=== PATIENT | female | born 1995 | race Caucasian/White ===

== ENCOUNTER 2022-04-15 20:55 | Emergency (ER) | payer OTHER ==
[2022-04-15 21:19] VITALS: BP 119/65
--- NOTE | 2022-04-15 22:17 | ED Physician Documentation ---
PD HPI CHEST PAIN - Stated complaint Stated Complaint: CHEST PX, SOA - Chief complaint Chief Complaint: Cardiac - History obtained from History obtained from: Patient - History of Present Illness Timing - onset: How many days ago (3) Timing - details: Gradual onset Quality: Aching Location: Substernal Radiation: Other (nonradiating) Improved by: Rest Similar symptoms before: No diagnosis Recently seen: Emergency Dept (seen at [facility]) Review of Systems Ten Systems: 10 systems reviewed and negative Cardiac: reports: Chest pain / pressure Respiratory: reports: Dyspnea. denies: Cough PD PAST MEDICAL HISTORY - Present Medications Home Medications: Ambulatory Orders Medication Instructions Recorded Confirmed No Known Home Medications 04/15/22 04/15/22 - Allergies Allergies/Adverse Reactions: Allergies Allergy/AdvReac Type Severity Reaction Status Date / Time No Known Drug Allergies Allergy Verified 04/15/22 21:19 PD ED PE NORMAL - Vitals Vital signs reviewed: Yes - General General: Alert and oriented X 3, No acute distress, Well developed/nourished - HEENT HEENT: Atraumatic, PERRL, EOMI - Neck Neck: Supple, no meningeal sign - Cardiac Cardiac: RRR - Respiratory Respiratory: No respiratory distress, Clear bilaterally - Abdomen Abdomen: Non tender, Non distended Results - Vitals Vitals: Vital Signs - 24 hr 04/15/22 04/15/22 21:16 21:19 Temperature 36.4 C L 36.5 C Heart Rate 58 L 58 L Respiratory 16 16 Rate Blood Pressure 119/65 119/65 O2 Saturation 98 98 Oxygen O2 Source Room air PD Medical Decision Making - ED course ED course: 27-year-old woman presented with chest pain, heart score 0, PERC negative. Reviewed her medical records from [facility] where she was seen earlier [facility]. Benign exam and normal vitals. Return precautions given. Plan to follow-up with primary care provider Departure - Departure Disposition: 01 Home, Self Care Clinical Impression: Chest pain Condition: Good Instructions: ED Chest Pain NonCardiac Comments: You are seen in the emergency department for chest pain. Your work-up at [facility] uncovered no emergent findings. Please follow-up with your primary care provider and return to the emergency department if you have new or worsening symptoms or other concerns.
== END 2022-04-15 22:25 | disposition home or self-care (01) ==
LOC: ED 20:55
DX: R07.9 Chest pain, unspecified (principal)
CPT/HCPCS: 80053; 83690; 84484; 85025; 93005; 99282; 99284

== ENCOUNTER 2022-07-04 10:28 | Emergency (ER) | payer OTHER ==
--- NOTE | 2022-07-04 11:21 | ED Physician Documentation ---
PD HPI URI - Stated complaint Stated Complaint: FEVER/HEAD PX - Chief complaint Chief Complaint: General - History obtained from History obtained from: Patient - History of Present Illness Timing - onset: How many days ago (2) Timing duration: Days (2) Timing details: Abrupt onset, Still present Associated symptoms: Fever, Nasal congestion, NVD (nausea with only vomiting couple times. Some loose stools.), Other (main symptoms are headache, body aches and nausea. Her son is with her and having similar symptoms.) Contributing factors: Sick contact (she stays at home but has 2 kids in school age, though they are both well currently. Her 4 year old son is with her and has similar symptoms to the patinet.) Improves by: Medication (tylenol and ibupofen help the headache but not resolving per se.) Similar symptoms before: Has not had sx before Recently seen: Not recently seen Review of Systems Constitutional: reports: Fever, Myalgias, Fatigue Nose: reports: Congestion. denies: Rhinorrhea / runny nose Throat: reports: Sore throat (mild) Respiratory: denies: Cough GI: reports: Nausea, Diarrhea. denies: Abdominal Pain Skin: denies: Rash, Lesions Neurologic: reports: Headache. denies: Altered mental status, Head injury, LOC PD PAST MEDICAL HISTORY - Past Medical History Cardiovascular: None Respiratory: None Endocrine/Autoimmune: None GI: None - Present Medications Home Medications: Ambulatory Orders Medication Instructions Recorded Confirmed Loperamide HCl [Imodium A-D] 2 mg PO Q6H PRN #10 tablet 07/04/22 Ondansetron Odt [Zofran] 4 mg TL Q6H PRN #10 tablet 07/04/22 dexAMETHasone [Decadron] 4 mg PO DAILY #5 tablet 07/04/22 - Allergies Allergies/Adverse Reactions: Allergies Allergy/AdvReac Type Severity Reaction Status Date / Time No Known Drug Allergies Allergy Verified 07/04/22 10:44 PD ED PE NORMAL - Vitals Vital signs reviewed: Yes - General General: Alert and oriented X 3, No acute distress, Well developed/nourished - HEENT HEENT: Ears normal, Moist mucous membranes, Pharynx benign - Neck Neck: Supple, no meningeal sign, No adenopathy - Cardiac Cardiac: RRR, No murmur - Respiratory Respiratory: Clear bilaterally - Abdomen Abdomen: Soft, Non tender - Derm Derm: Normal color, Warm and dry - Neuro Neuro: Alert and oriented X 3, No motor deficit, Normal speech Results - Vitals Vitals: Vital Signs - 24 hr 07/04/22 07/04/22 10:40 12:53 Temperature 36.8 C Heart Rate 83 73 Respiratory 16 14 Rate Blood Pressure 120/78 116/69 O2 Saturation 98 100 Oxygen O2 Source Room air PD Medical Decision Making - ED course Complexity details: considered differential (sounds viral illness. Her main symptoms are aches, nausea, headache, fevers. She does not appear meningitis nor septic. COnsidered but did not feel needed to eval with spinal tap/lumbar puncture. Also viral PRC would not change treatment per se, as her son is only 4 and patient is heathy. ), d/w patient Departure - Departure Disposition: 01 Home, Self Care Clinical Impression: Viral syndrome, Headache, Nausea & vomiting Condition: Stable Record reviewed to determine appropriate education?: Yes Instructions: ED Viral Syndrome Ch Follow-Up: YONY Lopez [Provider Group] Prescriptions: dexAMETHasone [Decadron] 4 mg PO DAILY #5 tablet Loperamide HCl [Imodium A-D] 2 mg PO Q6H PRN #10 tablet PRN Reason: Diarrhea Ondansetron Odt [Zofran] 4 mg TL Q6H PRN #10 tablet PRN Reason: Nausea / Vomiting Comments: Frequent fluids and bland food. Use ondansetron if needed for nausea. Tylenol every 4-6 hours if needed for headache or pain. You can add ibuprofen if needed. We gave a dose of an oral steroid anti-inflammatory to see if that will help with some of the aches and headache. I wrote a prescription for more but it may be the single dose is good. I would anticipate improvement over the next few days. Imodium if needed for diarrhea. Return if worsening symptoms. I [facility]. Discharge Date/Time: 07/04/22 12:57
[2022-07-04] MEDS ORDERED: ONDANSETRON ODT 4 MG TABLET TL STA (12:24)
[2022-07-04] MEDS ORDERED: DEXAMETHASONE 10 MG/ML VIAL PO STA (12:24)
[2022-07-04] MEDS ORDERED: CHERRY SYRUP 10 ML UDC PO ONE (12:24)
[2022-07-04 12:53] VITALS: BP 116/69
== END 2022-07-04 12:57 | disposition home or self-care (01) ==
LOC: ED 10:28
DX: B34.9 Viral infection, unspecified (principal); R51.9 Headache, unspecified; R11.10 Vomiting, unspecified
CPT/HCPCS: 99283; A9270; Q0162

== ENCOUNTER 2023-06-24 09:09 | Emergency (ER) | payer OTHER ==
--- NOTE | 2023-06-24 09:31 | ED Physician Documentation ---
History of Present Illness - Stated complaint Stated Complaint: GLF,SOA,RT SIDE/BACK PX - Chief complaint Chief Complaint: Trauma Ch/Bk - Additonal information Additional information: Patient 28-year-old female presenting to the emergency department with right- sided flank, rib, back pain. Reports slipped and fell down stairs Thursday, 3 days ago. No head trauma, loss of consciousness, use of blood thinning medications. Persistent pain made worse with physical activity/deep inspiration. Review of Systems Constitutional: denies: Fever Eyes: denies: Loss of vision Ears: denies: Loss of hearing Nose: denies: Rhinorrhea / runny nose Throat: denies: Dental pain / toothache Cardiac: denies: Chest pain / pressure Respiratory: denies: Dyspnea GI: denies: Abdominal Pain : denies: Dysuria PD PAST MEDICAL HISTORY - Past Medical History Past Medical History: Yes Cardiovascular: None Respiratory: None Endocrine/Autoimmune: None GI: None Musculoskeletal: Chronic back pain - Past Surgical History Past Surgical History: Yes HEENT: Other - Present Medications Home Medications: Ambulatory Orders Medication Instructions Recorded Confirmed Acetaminophen [Tylenol] 650 mg PO Q6H PRN #30 tab 06/24/23 Ketorolac [Toradol] 10 mg PO Q6H #30 tablet 06/24/23 Lidocaine Patch 5% [Lidoderm Patch] 1 patch TOP DAILY PRN #10 patch 06/24/23 methocarbamoL [Robaxin] 500 mg PO Q6H PRN #20 tablet 06/24/23 - Allergies Allergies/Adverse Reactions: Allergies Allergy/AdvReac Type Severity Reaction Status Date / Time No Known Drug Allergies Allergy Verified 06/24/23 09:23 - Social History Does the pt smoke?: No Smoking Status: Never smoker Does the pt drink ETOH?: Yes Does the pt have substance abuse?: No - Immunizations Immunizations are current?: Yes - POLST Patient has POLST: No Results - Vitals Vitals: Vital Signs - 24 hr 06/24/23 09:19 Temperature 36.0 C L Heart Rate 65 Respiratory 20 Rate Blood Pressure 147/65 H O2 Saturation 100 Oxygen O2 Source Room air - Labs Labs: Laboratory Tests 06/24/23 06/24/23 09:38 09:38 WBC 4.6 L RBC 4.00 L Hgb 12.6 Hct 38.4 MCV 96.0 MCH 31.5 H MCHC 32.8 RDW 12.4 Plt Count 206 MPV 10.4 Neut # (Auto) 2.5 Lymph # (Auto) 1.6 [place] # (Auto) 0.4 Eos # (Auto) 0.1 Baso # (Auto) 0.0 Absolute Nucleated RBC 0.00 Nucleated RBC % 0.0 Sodium 137 Potassium 3.9 Chloride 106 Carbon Dioxide 25 Anion Gap 6.0 BUN 8 Creatinine 0.7 Estimated GFR (MDRD) 99 Glucose 102 Calcium 9.4 Total Bilirubin 0.4 AST 9 L ALT 9 L Alkaline Phosphatase 32 L Total Protein 7.4 Albumin 4.9 Globulin 2.5 Albumin/Globulin Ratio 2.0 Lipase 25 PD Medical Decision Making - ED course Complexity details: reviewed results, re-evaluated patient, considered differential, d/w patient ED course: Patient 28-year-old female presenting to the emergency department with left back and flank pain. This occurred after an injury from 3 days ago. No reported head trauma or loss of consciousness. Not on blood thinners. Afebrile, hematin stable arrival to the emergency department. Initial differential diagnosis included to but not limited to musculoskeletal injury, rib fracture, solid organ injury. Labs reassuring. CT chest CT abdomen pelvis negative for acute trauma or traumatic injury. Patient given medication for pain control here in the emergency department with some symptomatic relief. Will discharge on course Toradol, Robaxin, acetaminophen, Lidoderm patches. Will encourage careful follow-up with primary care. Clear return precautions given. Departure - Departure Disposition: 01 Home, Self Care Clinical Impression: Fall, Back pain Instructions: ED Neck Back Pain General, ANTI-INFLAMMATORY, General Prescriptions: Lidocaine Patch 5% [Lidoderm Patch] 1 patch TOP DAILY PRN #10 patch PRN Reason: pain methocarbamoL [Robaxin] 500 mg PO Q6H PRN #20 tablet PRN Reason: muscle spasm Ketorolac [Toradol] 10 mg PO Q6H #30 tablet Acetaminophen [Tylenol] 650 mg PO Q6H PRN #30 tab PRN Reason: Pain Comments: Thank you for allowing us to care for you today it would be health. Today in the emergency room you were evaluated for any possible dangerous or life-threatening medical emergency. All the testing performed in the emergency department today including your blood work as well as the imaging of your chest, abdomen and pelvis were all very reassuring. There were no rib fractures, injuries to solid organs or other dangerous findings in the emergency department today. Please follow-up with your primary care doctor soon as possible to review your ER visit. Forms: PCP List
[2023-06-24] MEDS: SODIUM CHLORIDE 0.9% 1,000 ML IV STA (09:44)
[2023-06-24] MEDS: MORPHINE 2 MG/ML CARPUJECT IVP STA (09:45)
[2023-06-24] MEDS: ONDANSETRON 4 MG/2 ML VIAL IVP STA (09:46)
[2023-06-24 09:47] LABS: BASOPHILS % (AUTO) 0.7 %; EOSINOPHILS # (AUTO) 0.1 10^3/uL (0.0-0.7); EOSINOPHILS % (AUTO) 1.7 %; HCT - HEMATOCRIT 38.4 % (37.0-47.0); HGB - HEMOGLOBIN 12.6 g/dL (12.0-16.0); LYMPHOCYTES # (AUTO) 1.6 10^3/uL (1.5-3.5); LYMPHOCYTES % (AUTO) 34.3 %; MEAN CORPUSCULAR HEMOGLOBIN 31.5 pg (27.0-31.0); MEAN CORPUSCULAR HGB CONC 32.8 g/dL (32.0-36.0); MEAN PLATELET VOLUME 10.4 fL (7.9-10.8); MONOCYTES # (AUTO) 0.4 10^3/uL (0.0-1.0); MONOCYTES % (AUTO) 9.1 %; NEUTROPHILS # (AUTO) 2.5 10^3/uL (1.5-6.6); NEUTROPHILS % (AUTO) 54.2 %; PLT - PLATELET COUNT 206 10^3/uL (130-450); RED CELL DISTRIBUTION WIDTH 12.4 % (12.0-15.0); WHITE BLOOD COUNT 4.6 x10^3/uL (4.8-10.8)
[2023-06-24] MEDS: KETOROLAC 30 MG/ML VIAL IVP STA (09:52)
[2023-06-24] MEDS: LIDOCAINE PATCH 5% TOP STA (09:54)
[2023-06-24 10:03] LABS: ALBUMIN 4.9 g/dL (3.2-5.5); BILIRUBIN,TOTAL 0.4 mg/dL (0.2-1.0); CALCIUM 9.4 mg/dL (8.5-10.3); CREATININE 0.7 mg/dL (0.6-1.3); POTASSIUM 3.9 mmol/L (3.5-4.5); TOTAL PROTEIN 7.4 g/dL (6.4-8.9)
[2023-06-24] MEDS ORDERED: IOVERSOL 320 100 ML VIAL IVP ONE (11:07)
--- NOTE | 2023-06-24 12:07 | CT Report ---
PROCEDURE: Chest W INDICATIONS: trauma CONTRAST: Opti 320- 100ml TECHNIQUE: After the administration of intravenous contrast, a CT scan of the chest was performed. Images were recorded and evaluated at appropriate window settings. Reformats: axial MIP of the chest, coronal and sagittal. For radiation dose reduction, the following was used: automated exposure control, adjustme nt of mA and/or kV according to patient size. COMPARISON: None. FINDINGS: Image quality: Diagnostic Lungs and pleura:No pneumothorax or hemothorax. Basilar atelectasis. No pulmonary contusions or lacer ations identified. Mediastinum, heart, and esophagus: No mediastinal hematoma. No aortic dissection identified. No centr al pulmonary embolism. No pathologic lymph nodes by size criteria. Chest wall and thyroid: No actionable thyroid nodule identified. Chest wall is unremarkable Upper abdomen: Separately dictated Bones: No acute or suspicious osseous finding. IMPRESSION: No acute traumatic injury to the chest. Abdominal findings are separately dictated. Reviewed by: Mick Stubbs MD on 06/24/2023 12:06 PM PST Approved by: Mick Stubbs MD on 06/24/2023 12:06 PM PST Station ID: [id number]
--- NOTE | 2023-06-24 12:13 | CT Report ---
PROCEDURE: Abdomen/Pelvis W INDICATIONS: traum CONTRAST: Opti 320- 100ml TECHNIQUE: After the administration of intravenous contrast, a CT scan of the abdomen and pelvis was performed. Images were recorded and evaluated at appropriate window settings. Reformats: coronal and sagittal. F or radiation dose reduction, the following was used: automated exposure control, adjustment of mA and /or kV according to patient size. COMPARISON: None. FINDINGS: Image quality: Diagnostic Lower chest: Separately dictated Liver: Heterogeneous appearance likely due to beam hardening artifact and contrast timing. No discret e laceration or hematoma. Gallbladder and biliary system: Unremarkable, nondilated Pancreas: No ductal dilation Spleen: Nonenlarged. No discrete laceration or hematoma Adrenals: No hematoma. Kidneys: No solid mass. Subcentimeter lesions are too small to characterize, possibly cysts. No lacer ation or hematoma Vessels and lymph nodes: No pathologic lymph nodes by size criteria. There is no abdominal aortic ane urysm. Main portal vein appears patent. Bowel and peritoneum: No evidence of small bowel obstruction. No hemoperitoneum. A small amount pelvi c free fluid may be physiologic in this age group. Body wall: Small fat-containing umbilical hernia. Pelvis: Bladder is unremarkable. Prominent reproductive organs likely physiologic. Suspected left cor pus luteum. Consider ultrasound if there is further concern for pelvic abnormality. Bones: No acute or suspicious abnormality. There is disc space height loss at L5-S1. No traumatic sub luxation. IMPRESSION: No acute traumatic injury to the abdomen/pelvis. Other findings as above. Chest findings are separate ly dictated. A small amount pelvic free fluid is present, possibly physiologic in this age group. Reviewed by: Mick Stubbs MD on 06/24/2023 12:12 PM PST Approved by: Mick Stubbs MD on 06/24/2023 12:12 PM PST Station ID: [id number]
[2023-06-24 12:50] VITALS: BP 113/59; O2SAT 98
[2023-06-24] MEDS: IOVERSOL 320 100 ML VIAL IVP ONE (18:10)
== END 2023-06-24 12:42 | disposition home or self-care (01) ==
LOC: ED 09:09
DX: M54.9 Dorsalgia, unspecified (principal); R10.31 Right lower quadrant pain; W10.9XXA Fall (on) (from) unspecified stairs and steps, initial encounter
CPT/HCPCS: 36415; 71260; 74177; 80053; 83690; 85025; 96374; 96375; 99284; A9270; Q9967

== ENCOUNTER 2023-07-06 09:45 | Outpatient (CLI) | payer OTHER | END 2023-07-06 10:00 | disposition home or self-care (01) | LOC: LAB.N 09:45 | PROVIDERS: ATTEND Physician Assistant Medical | DX: J02.9 Acute pharyngitis, unspecified (principal) | CPT/HCPCS: 87070 ==